=== PATIENT | male | born 1965 | race Caucasian/White ===

== ENCOUNTER → 2017-06-29 | Outpatient (CLI) | payer OTHER ==
--- NOTE | 2017-06-29 11:57 | Diagnostic Imaging Report ---
PROCEDURE:X-RAY LEFT ELBOW, COMPLETE COMPARISON:None. INDICATIONS:LEFT ELBOW PAIN FROM FALL FINDINGS: There are no fractures, dislocations, lytic or blastic lesions. The bones are well-mineralized. Joint spaces are preserved. No posterior fat pad elevation. The soft-tissues are unremarkable. CONCLUSION: No acute abnormalities. Herb Berger M.D. Dictated by: Herb Berger M.D. on 06/29/2017 at 11:56 Electronically approved by: Herb Berger M.D. on 06/29/2017 at 11:56
== END ==
LOC: RAD 11:08
PROVIDERS: ATTEND Internal Medicine
DX: M25.522 Pain in left elbow (principal)